=== PATIENT | female | born 1970 | race Caucasian/White ===

== ENCOUNTER 2023-08-22 19:10 | Outpatient (CLI) | payer MEDICARE, OTHER | END 2023-08-22 23:59 | disposition short-term general hospital (02) | LOC: EMS 19:10 | PROVIDERS: ATTEND Emergency Medicine | DX: S01.21XA Laceration without foreign body of nose, initial encounter (principal); M54.2 Cervicalgia; M25.561 Pain in right knee; M79.645 Pain in left finger(s); W01.0XXA Fall on same level from slipping, tripping and stumbling without subsequent striking against object, initial encounter; Y93.01 Activity, walking, marching and hiking; Y92.008 Other place in unspecified non-institutional (private) residence as the place of occurrence of the external cause; Z96.651 Presence of right artificial knee joint | CPT/HCPCS: A0425; A0429 ==